=== PATIENT | female | born 1995 | race Caucasian/White ===

== ENCOUNTER 2018-07-18 20:05 | Emergency (ER) | payer OTHER ==
[~2018-07-18] VITALS: Ht 167.6 cm; Wt 58.1 kg
[2018-07-18 21:12] VITALS: BP 111/66
== END 2018-07-18 22:06 | disposition home or self-care (01) ==
LOC: ED 21:55
DX: S93.491A Sprain of other ligament of right ankle, initial encounter (principal); R55 Syncope and collapse; X58.XXXA Exposure to other specified factors, initial encounter; Y93.89 Activity, other specified; Y99.8 Other external cause status; Y92.89 Other specified places as the place of occurrence of the external cause
CPT/HCPCS: 93005; 99284